=== PATIENT | female | born 1975 | race Caucasian/White ===

== ENCOUNTER 2018-05-21 09:00 | Inpatient (IN) | payer OTHER ==
[~2018-05-21] VITALS: Ht 154.9 cm; Wt 68.0 kg
== END 2018-05-25 12:26 | disposition home or self-care (01) | DRG 743 ==
LOC: SURH 05-23 09:00 → SURG 05-23 09:22 → O/R 05-23 09:22 → SURH 05-23 09:45 → SURG 05-23 20:05 → SURH 05-25 10:54
PROVIDERS: Obstetrics & Gynecology Gynecologic Oncology; Surgery Plastic and Reconstructive Surgery
PROC: 0UT90ZZ Resection of Uterus, Open Approach (ICD-10-PCS; principal; 2018-05-23 09:45)
PROC: 0UT70ZZ Resection of Bilateral Fallopian Tubes, Open Approach (ICD-10-PCS; 2018-05-23 09:45)
PROC: 0J080ZZ Alteration of Abdomen Subcutaneous Tissue and Fascia, Open Approach (ICD-10-PCS; 2018-05-23 09:45)
DX: N87.1 Moderate cervical dysplasia (principal); E65 Localized adiposity

== ENCOUNTER 2018-06-04 16:29 | Inpatient (IN) | payer OTHER ==
[~2018-06-04] VITALS: Ht 154.9 cm; Wt 69.9 kg
[2018-06-13] MEDS ORDERED: LEVAQUIN500 MG PO (09:59)
[2018-06-13] MEDS ORDERED: COLACE100 MG PO (10:01)
[2018-06-13] MEDS ORDERED: INTEGRA F CAPS1 EACH PO (10:02)
[2018-06-13] MEDS ORDERED: ULTRACET PO (10:04)
[2018-06-13] MEDS ORDERED: AQUACEL AG FOA1 EAC7 TOP (10:04)
== END 2018-06-13 11:35 | disposition home or self-care (01) | DRG 908 ==
LOC: ER 16:29 → MEDI 06-05 12:33 → SEC-K 06-05 12:33 → MEDI 06-05 13:46
PROVIDERS: Urology
PROC: 30233N1 Transfusion of Nonautologous Red Blood Cells into Peripheral Vein, Percutaneous Approach (ICD-10-PCS; 2018-06-06)
PROC: 0J983ZZ Drainage of Abdomen Subcutaneous Tissue and Fascia, Percutaneous Approach (ICD-10-PCS; 2018-06-10)
PROC: 0WQF3ZZ Repair Abdominal Wall, Percutaneous Approach (ICD-10-PCS; principal; 2018-06-10 11:00)
PROC: BW41ZZZ Ultrasonography of Abdomen and Pelvis (ICD-10-PCS; 2018-06-11)
DX: L76.22 Postprocedural hemorrhage of skin and subcutaneous tissue following other procedure (principal); T81.31XA Disruption of external operation (surgical) wound, not elsewhere classified, initial encounter; D62 Acute posthemorrhagic anemia; Y83.6 Removal of other organ (partial) (total) as the cause of abnormal reaction of the patient, or of later complication, without mention of misadventure at the time of the procedure; Y92.098 Other place in other non-institutional residence as the place of occurrence of the external cause; R33.8 Other retention of urine; Z90.710 Acquired absence of both cervix and uterus; B96.4 Proteus (mirabilis) (morganii) as the cause of diseases classified elsewhere

== ENCOUNTER 2022-08-31 12:46 | Outpatient (CLI) | payer OTHER ==
[~2022-08-31 12:46] MED LIST: AQUACEL AG FOA1 EAC7 TOP; COLACE100 MG PO; INTEGRA F CAPS1 EACH PO; LEVAQUIN500 MG PO; ULTRACET PO
== END 2022-08-31 12:59 | disposition home or self-care (01) ==
LOC: SONOGRAMA 12:46
PROVIDERS: ATTEND Obstetrics & Gynecology
DX: N83.201 Unspecified ovarian cyst, right side (principal)

== ENCOUNTER 2023-01-03 10:52 | Outpatient (CLI) | payer OTHER | END 2023-01-03 11:11 | disposition home or self-care (01) | LOC: SONOGRAMA 10:52 | PROVIDERS: ATTEND Obstetrics & Gynecology | DX: N83.202 Unspecified ovarian cyst, left side (principal) ==

== ENCOUNTER → 2025-05-11 | Day surgery (SDC) | payer OTHER ==
[2025-05-01 13:42] VITALS: BP 116/71
[~2025-05-11] VITALS: Ht 154.9 cm; Wt 73.5 kg
[~2025-05-11] MED LIST changes: +CRESTOR40 MG; +DEXAMETHASONE SODIUM PHOSPHATE 4 MG/ML VIAL IV ONE; +MORPHINE SULFATE 4 MG/ML VIAL IV ONE
== END | disposition home or self-care (01) ==
LOC: ADM 05-01 11:15 → CIR.AMB 05:24
PROVIDERS: ATTEND Surgery
DX: C73 Malignant neoplasm of thyroid gland (principal); Z88.0 Allergy status to penicillin; Z88.2 Allergy status to sulfonamides